=== PATIENT | female | born 1960 | race Caucasian/White ===

== ENCOUNTER → 2017-06-09 | Outpatient (CLI) | payer BC ==
[2017-06-09 19:48] LABS: HEMATOCRIT 40.3 % (36.0-47.0); HEMOGLOBIN 13.3 g/dl (12.0-16.0); MEAN CORPUSCULAR HEMOGLOBIN 29.6 pg (27.0-33.0); MEAN CORPUSCULAR VOLUME 89.8 fl (80.0-96.0); PLATELET COUNT, AUTOMATED 258 10^3/uL (150-450); RED BLOOD COUNT 4.49 10^6/uL (4.00-5.40); RED CELL DISTRIBUTION WIDTH 14.1 % (11.5-14.5); WHITE BLOOD COUNT 12.8 10^3/uL (4.0-10.0)
[2017-06-09 19:49] LABS: ADD MANUAL DIFFER YES; DIFF SLIDE NUMBER 311; POSITIVE MORPH POS FLAG
[2017-06-09 20:17] LABS: ALBUMIN 3.2 GM/DL (3.2-5.2); ALBUMIN/GLOBULIN RATIO 0.97 (1.00-1.93); ALKALINE PHOSPHATASE 72 U/L (45-117); ALT/SGPT 11 U/L (12-78); ANION GAP 8 MEQ/L (8-16); AST/SGOT 6 U/L (7-37); BILIRUBIN,TOTAL 0.5 MG/DL (0.2-1.0); BLOOD UREA NITROGEN 20 MG/DL (7-18); CALCIUM LEVEL 8.6 MG/DL (8.5-10.1); CARBON DIOXIDE LEVEL 26 MEQ/L (21-32); CHLORIDE LEVEL 104 MEQ/L (98-107); CREATININE FOR GFR 0.83 MG/DL (0.55-1.30); GLOMERULAR FILTRATION RATE > 60.0 (>51); GLUCOSE, FASTING 118 MG/DL (70-100); POTASSIUM SERUM 4.2 MEQ/L (3.5-5.1); SODIUM LEVEL 138 MEQ/L (136-145); TOTAL PROTEIN 6.5 GM/DL (6.4-8.2)
[2017-06-09 21:17] LABS: BANDS 7 % (< 11); LYMPHOCYTES 2 % (16-52); METAMYELOCYTES 3 % (0-0); MONOCYTES 4 % (0-8); NEUTROPHILS 84 % (35-75)
[2017-06-09 21:23] LABS: PLATELET CLUMPS SMALL AMT; PLATELET ESTIMATE NORMAL (NORMAL)
== END ==
LOC: M WUC 17:04
DX: J20.9 Acute bronchitis, unspecified (principal)
CPT/HCPCS: 80053

== ENCOUNTER → 2018-06-21 | Outpatient (CLI) | payer OTHER, BC ==
[~2018-06-21] MED LIST: PRIL20CA
[2018-06-21 11:15] LABS: RUBELLA IgG QUALITATIVE IMMUNE (IMMUNE)
[2018-06-22 08:06] LABS: RUBEOLA IgG ANTIBODY >300.0 AU/mL (Immune >29.9)
[2018-06-23 00:07] LABS: HERPES ZOSTER, VARICELLA IgG 864 index (Immune >165); HERPES ZOSTER, VARICELLA IgM <0.91 index (0.00-0.90); MUMPS VIRUS IgG ANTIBODY 51.4 AU/mL (Immune >10.9)
== END ==
LOC: M LAB 09:01
PROVIDERS: ATTEND Physician Assistant
DX: Z02.1 Encounter for pre-employment examination (principal)

== ENCOUNTER → 2020-08-08 | Outpatient (CLI) | payer SELFPAY ==
[~2020-08-08] MED LIST changes: +IBUP-1114 PO; +PREN1CHW6 PO
== END ==
LOC: M LABSMTC 12:17
PROVIDERS: ATTEND Anesthesiology
DX: Z01.818 Encounter for other preprocedural examination (principal); Z20.828 Contact with and (suspected) exposure to other viral communicable diseases

== ENCOUNTER 2020-08-13 08:46 | Day surgery (SDC) | payer OTHER, BC ==
[~2020-08-13] VITALS: Ht 157.5 cm; Wt 78.5 kg
[~2020-08-13 08:46] MED LIST changes: +LIDOCAINE 2% 100MG/5ML SDV (FOR ANES.) As Ordered ONE; +NS 1,000 ML IV ONE; +propofoL 200 MG/20 ML VIAL As Ordered ONE
--- NOTE | 2020-08-13 12:10 | ROOR ---
Patient Name: Juliana Jaime Procedure Date: 08/13/2020 11:42 AM Date of : 1960 Age: 59 Room: [facility] Gender: Female Note Status: Finalized Procedure: Total Colonoscopy to Cecum + Cold Snare Polypectomy + Hemoclips + ileoscopy Indications: Screening for colorectal malignant neoplasm Providers: Andrzej Mclean MD Referring MD: Huong FREGOSO DO Requesting Provider: Medicines: Monitored Anesthesia Care Complications: No immediate complications. Procedure: Pre-Anesthesia Assessment: - The heart rate, respiratory rate, oxygen saturations, blood pressure, adequacy of pulmonary ventilation, and response to care were monitored throughout the procedure. The Colonoscope was introduced through the anus and advanced to the cecum, identified by appendiceal orifice and ileocecal valve. The colonoscopy was performed without difficulty. The patient tolerated the procedure well. The quality of the bowel preparation was excellent. Findings: The perianal and digital rectal examinations were normal. Non-bleeding internal hemorrhoids were found during retroflexion. The hemorrhoids were small and Grade I (internal hemorrhoids that do not prolapse). Scattered small-mouthed diverticula were found in the recto-sigmoid colon, sigmoid colon and descending colon. Two sessile polyps were found at 25 cm proximal to the anus. The polyps were small in size. These polyps were removed with a cold snare. Resection and retrieval were complete. To prevent bleeding after the polypectomy, one hemostatic clip was successfully placed (MR conditional). There was no bleeding at the end of the procedure. The exam was otherwise without abnormality on direct and retroflexion views. The terminal ileum appeared normal. The exam was otherwise without abnormality. Impression: - Non-bleeding internal hemorrhoids. - Diverticulosis in the recto-sigmoid colon, in the sigmoid colon and in the descending colon. - Two small polyps at 25 cm proximal to the anus, removed with a cold snare. Resected and retrieved. Clip (MR conditional) was placed. - The examination was otherwise normal on direct and retroflexion views. - The examined portion of the ileum was normal. - The examination was otherwise normal. - The exam was otherwise normal to the cecum. Recommendation: - Patient has a contact number available for emergencies. The signs and symptoms of potential delayed complications were discussed with the patient. Return to normal activities tomorrow. Written discharge instructions were provided to the patient. - High fiber diet. - Discharge patient to home. - Continue present medications. - Await pathology results. - Telephone GI clinic for pathology results in 1 week. - Repeat colonoscopy in 5 years for surveillance based on pathology results. - Return to referring physician. - The findings and recommendations were discussed with the patient. Procedure Code(s): --- Professional --- 51918, Colonoscopy, flexible; with removal of tumor(s), polyp(s), or other lesion(s) by snare technique Diagnosis Code(s): --- Professional --- Z12.11, Encounter for screening for malignant neoplasm of colon K64.0, First degree hemorrhoids K63.5, Polyp of colon K57.30, Diverticulosis of large intestine without perforation or abscess without bleeding CPT copyright 2019 [employer]. All rights reserved. The codes documented in this report are preliminary and upon stapling machine operator review may be revised to meet current compliance requirements. Andrzej Mclean MD Andrzej Mclean MD 08/13/2020 12:09:41 PM Electronically signed by Andrzej Mclean MD Number of Addenda: 0 Note Initiated On: 08/13/2020 11:42 AM Estimated Blood Loss: Estimated blood loss: none.
[2020-08-13 12:25] VITALS: BP 141/83
== END 2020-08-13 13:40 | disposition home or self-care (01) ==
LOC: M OPP 08:46
PROVIDERS: ATTEND Internal Medicine Gastroenterology
DX: Z12.11 Encounter for screening for malignant neoplasm of colon (principal); K57.30 Diverticulosis of large intestine without perforation or abscess without bleeding; K63.5 Polyp of colon; K64.0 First degree hemorrhoids; F17.210 Nicotine dependence, cigarettes, uncomplicated; Z88.0 Allergy status to penicillin

== ENCOUNTER → 2024-09-01 | Outpatient (CLI) | payer MEDICARE ==
[~2024-09-01] MED LIST changes: -LIDOCAINE 2% 100MG/5ML SDV (FOR ANES.) As Ordered ONE; -NS 1,000 ML IV ONE; -propofoL 200 MG/20 ML VIAL As Ordered ONE
== END ==
LOC: M WHC 13:28
PROVIDERS: ATTEND Family Medicine
DX: Z12.31 Encounter for screening mammogram for malignant neoplasm of breast (principal)